=== PATIENT | female | born 1955 | race Caucasian/White ===

== ENCOUNTER 2018-02-28 09:00 | Outpatient (RCR) | payer OTHER, SELFPAY ==
--- NOTE | 2017-10-26 11:38 | PT.OIE ---
Current Diagnoses Incomplete uterovaginal prolapse (10/26/17) Provider Visit Care Team Role Provider Type Hira Mathew MD Family Provider Non-Staff Primary Care Provider Specialty: Family Practice Address: [address] [place], [address] Email: Sunshine Braun MD Attending Provider Physician Specialty: PHOTOFLASH POWDER MIXER Address: [address] [place] [address], [id number] Email: [email or web address] Physical Therapy Initial Evaluation PT-OP-A Visit Information Start: 10/26/17 11:05 Freq: Status: Active Protocol: Document 10/26/17 11:05 [facility] (Rec: 10/26/17 11:19 [facility] [email or web address]) Out-Patient Physical Therapy Visit Information Visit Information Visit Type Initial Evaluation Visit Start Time 10:00 Visit Stop Time 10:45 Total Visit Minutes 45 Visit Number 1 Evaluation Information Evaluation Date 10/26/17 PT-OP-B Current Condition Start: 10/26/17 11:05 Freq: Status: Active Protocol: Document 10/26/17 11:05 [facility] (Rec: 10/26/17 11:19 [facility] [email or web address]) Current Condition History of Current Condition Onset Date jul 25 Current Complaints post op strengthening for repair of uterovaginal prolapse History of Current Condition 62 year old female referred for pelvic floor strengthening s/p uterovaginal prolapse on jul 25 2017. She has been walking only at this point and seeks guidance as to a exercise program she can begin working on for her pelvic floor and hips. She does have a history of a JENNIFER on the right hip 4 years ago with resulting infection and second surgery to clean out the infection. She has been getting PT for scar tissue release and hip strengthening but has put that on hold until she is clear to resume exercise. Mee was experiencing stress incontinence along with the pelvic organ prolapses however she has not expereinced any leaking s/p surgery Treatment Goals Patient/Caregiver Goals Treatment goals include obtaining a home exercise program she can do independently as well as guidance as to returning to pilates exercises she enjoys doing. Mee reports she also needs to be able to lift heavier items at times for work. Prior Functional Status Baseline Function- ADL's Independent Baseline Function- Mobility Independent Current Functional Impairments (Reported) Functional Limitations- ADL's limited in activities that require lifting Functional Limitations- Recreation/ walking only for exercise at [employer] this time PT-OP-I Pelvic Floor Start: 10/26/17 11:19 Freq: Status: Active Protocol: Document 10/26/17 11:19 [facility] (Rec: 10/26/17 11:36 [facility] [email or web address]) Pelvic Floor Assessment Urine Pelvic Floor Surgery Yes Pelvic Clock Pelvic Clock 12-3 Atrophy Pelvic Clock 3-6 Atrophy Pelvic Clock 6-9 Atrophy Pelvic Clock 9-12 Atrophy Pelvic Clock Other Mee is able to activate all regions of the levator ani however the contraction is limited in strength and endurance SEMG (uV) Baseline 1.5 10 Second Contraction 6.4 Recruitment Pattern Fair Relaxation Fair Holding Fair Stability of Hold Fair SEMG Stability of Rest Good Contraction Ability Voluntary Contraction Weak Manual Muscle Testing Left 2 Manual Muscle Testing Right 2 Manual Muscle Testing Anterior 2 Manual Muscle Testing Posterior 3 Muscle Endurance (Seconds) 5 PT-OP-M Strength Start: 10/26/17 11:19 Freq: Status: Active Protocol: Document 10/26/17 11:19 [facility] (Rec: 10/26/17 11:36 [facility] [email or web address]) Trunk Strength Trunk Manual Muscle Testing Core Stabilization able to facilitate Transverse abdominal musculature in supine PT-OP-Q Treatments Start: 10/26/17 11:19 Freq: Status: Active Protocol: Document 10/26/17 11:19 [facility] (Rec: 10/26/17 11:36 [facility] [email or web address]) Therapeutic Exercises Supine Exercises 2 Supine Exercise Name ball rolls in and hip roll outs Side bilateral Reps/Minutes 3 sets of 10 reps each 1 Supine Exercise Name pelvic floor long holds with EMG biofeedback Side bilateral Reps/Minutes hold 10 sec rest 10 sec Comments gave HEP of 5 second hold time 8-10 second rest time, done with home NMES PT-OP-T Assessment and Plan Start: 10/26/17 11:19 Freq: Status: Active Protocol: Document 10/26/17 11:19 [facility] (Rec: 10/26/17 11:36 [facility] [email or web address]) Physical Therapy Assessment Rehab Potential Rehabilitation Potential Excellent Evaluation Complexity Number of Personal Factors/Comorbidities 1-2 Number of Body Systems Impaired 1-2 Clinical Presentation at Evaluation Stable Impairments Impairments Activity Tolerance Functional Activities Strength Tone Goals Three Impairment Mee lacks a home exercise program for pelvic floor and hip strengthening Longterm Goal (LTG) Mee feels independent with a home program of pelvic floor strengthening and hip strengthening and she is able to resume lower abdominal stabilization exercises with correct facilitation of the pelvic floor to avoid any downward pressure. LTG Duration 8 weeks Two Impairment decreased endurance of the pelvic floor Short Term Goal (STG) Improve endurance of the pelvic floor to 10 second hold time in supine and 5 second hold time in standing for improved facilitation of slow twitch muscle fibers STG Duration 6 weeks One Impairment decreased strength of the pelvic floor musculature Community Engagement Coordinator Goal (LTG) Mee demonstrates improved strength of the levator ani with MMT of 4/5 for the pelvic clock or better to assist is supporting the pelvic organs s /p surgery. LTG Duration 8 weeks Assessment Summary Assessment Mee presents to physical therapy 13 weeks s/p her prolapse repair. She has been walking only at this point and seeks guidance on pelvic floor strengthening as well as guidance as to when she can return to her PT for her hip. She has purchased a home kegel toner NMES unit and has tried this out a few times. With examination today Mee is able to facilitate all parts of her levator ani. She is atrophied and is weak but has good sensation and awareness of her pelvic floor. She is limited in endurance. She was started today with Biofeedback and was given a home program working towards of goal of 10 second hold time . We will then progress her exercises to include her hip and safe abdominal exercise avoiding downward pressure and increased intra-abdominal pressure. Treatments will be every other week as Mee lives on [place] and 1xm a week is difficult for her to make Physical Therapy Plan Frequency and Duration Frequency of Treatment Every Other Week Duration of Treatment 8 weeks Plan of Care Start Date 10/26/17 Plan of Care End Date 12/21/17 Therapeutic Interventions Therapeutic Interventions Home Exercise Program Neuromuscular Re-education Patient/Caregiver Education Self-Care/Home Management Therapeutic Exercises Modalities Biofeedback Next Visit Focus/Plan Next Visit Plan begin increasing pelvic floor endurance and add in hip stabilization as the patient is able Please Sign and Return: I have reviewed this Plan of Care and certify that the skilled therapy services above are required to meet the patient???s needs. Physician Signature Date Printed Name and Credentials Clinical Instructor Signature Printed Name and Credentials
--- NOTE | 2017-11-10 09:56 | PT.OTN ---
Current Diagnoses Incomplete uterovaginal prolapse (11/10/17) Physical Therapy Treatment Note PT-OP-A Visit Information Start: 10/26/17 11:05 Freq: Status: Active Protocol: Document 11/10/17 09:52 [facility] (Rec: 11/10/17 09:56 [facility] [email or web address]) Out-Patient Physical Therapy Visit Information Visit Information Visit Type Treatment Note Visit Start Time 09:00 Visit Stop Time 09:45 Total Visit Minutes 45 Visit Number 2 Number of ORACLE APEX DEVELOPER Visits 0 PT-OP-B Current Condition Start: 10/26/17 11:05 Freq: Status: Active Protocol: Document 10/26/17 11:05 [facility] (Rec: 10/26/17 11:19 [facility] [email or web address]) Current Condition History of Current Condition Onset Date jul 25 Current Complaints post op strengthening for repair of uterovaginal prolapse History of Current Condition 62 year old female referred for pelvic floor strengthening s/p uterovaginal prolapse on jul 25 2017. She has been walking only at this point and seeks guidance as to a exercise program she can begin working on for her pelvic floor and hips. She does have a history of a JENNIFER on the right hip 4 years ago with resulting infection and second surgery to clean out the infection. She has been getting PT for scar tissue release and hip strengthening but has put that on hold until she is clear to resume exercise. Mee was experiencing stress incontinence along with the pelvic organ prolapses however she has not expereinced any leaking s/p surgery Treatment Goals Patient/Caregiver Goals Treatment goals include obtaining a home exercise program she can do independently as well as guidance as to returning to pilates exercises she enjoys doing. Mee reports she also needs to be able to lift heavier items at times for work. Prior Functional Status Baseline Function- ADL's Independent Baseline Function- Mobility Independent Current Functional Impairments (Reported) Functional Limitations- ADL's limited in activities that require lifting Functional Limitations- Recreation/ walking only for exercise at [employer] this time PT-OP-C Subjective Start: 10/26/17 11:05 Freq: Status: Active Protocol: Document 11/10/17 09:52 [facility] (Rec: 11/10/17 09:56 [facility] [email or web address]) OP-PT Subjective Patient Comments Patient Comments Mee reports she has been working on her home exercise program. She had one day where she felt pressure with prunning a pitt in her yard PT-OP-I Pelvic Floor Start: 10/26/17 11:19 Freq: Status: Active Protocol: Document 10/26/17 11:19 [facility] (Rec: 10/26/17 11:36 [facility] [email or web address]) Pelvic Floor Assessment Urine Pelvic Floor Surgery Yes Pelvic Clock Pelvic Clock 12-3 Atrophy Pelvic Clock 3-6 Atrophy Pelvic Clock 6-9 Atrophy Pelvic Clock 9-12 Atrophy Pelvic Clock Other Mee is able to activate all regions of the levator ani however the contraction is limited in strength and endurance SEMG (uV) Baseline 1.5 10 Second Contraction 6.4 Recruitment Pattern Fair Relaxation Fair Holding Fair Stability of Hold Fair SEMG Stability of Rest Good Contraction Ability Voluntary Contraction Weak Manual Muscle Testing Left 2 Manual Muscle Testing Right 2 Manual Muscle Testing Anterior 2 Manual Muscle Testing Posterior 3 Muscle Endurance (Seconds) 5 PT-OP-M Strength Start: 10/26/17 11:19 Freq: Status: Active Protocol: Document 10/26/17 11:19 [facility] (Rec: 10/26/17 11:36 [facility] [email or web address]) Trunk Strength Trunk Manual Muscle Testing Core Stabilization able to facilitate Transverse abdominal musculature in supine PT-OP-Q Treatments Start: 10/26/17 11:19 Freq: Status: Active Protocol: Document 11/10/17 09:52 [facility] (Rec: 11/10/17 09:56 [facility] [email or web address]) Therapeutic Exercises Supine Exercises 5 Supine Exercise Name TA facilitation and work on pelvic stabilization with marches Reps/Minutes 20 reps 4 Supine Exercise Name templates for eccentric control and coordination Reps/Minutes 8 minutes 3 Supine Exercise Name quick pelvic floor contractions Reps/Minutes 2 seconds on 2 seconds off 2 Supine Exercise Name ball rolls in and hip roll outs Side bilateral Reps/Minutes 3 sets of 10 reps each 1 Supine Exercise Name pelvic floor long holds with EMG biofeedback Side bilateral Reps/Minutes hold 10 sec rest 10 sec Comments gave HEP of 5 second hold time 8-10 second rest time, done with home NMES Self-Care/Home Management Treatment Activities Self-Care/Home Management Activities trial of a wedge today for pelvic floor assist PT-OP-T Assessment and Plan Start: 10/26/17 11:19 Freq: Status: Active Protocol: Document 11/10/17 09:52 [facility] (Rec: 11/10/17 09:56 [facility] [email or web address]) Physical Therapy Assessment Assessment Summary Assessment good increase in strength today on EMG biofeedback for 6 .4 to 8.9 uv average. Her max went from 12.0 to 18.9 uv Physical Therapy Plan Frequency and Duration Frequency of Treatment Every Other Week Duration of Treatment 8 weeks Plan of Care Start Date 10/26/17 Plan of Care End Date 12/21/17 Therapeutic Interventions Therapeutic Interventions Home Exercise Program Neuromuscular Re-education Patient/Caregiver Education Self-Care/Home Management Therapeutic Exercises Modalities Biofeedback Next Visit Focus/Plan Next Visit Plan continue to progress abdominal stabilization and hip stabilization Please Sign and Return: I have reviewed this Plan of Care and certify that the skilled therapy services above are required to meet the patient?s needs. Physician Signature Date Printed Name and Credentials Clinical Instructor Signature Printed Name and Credentials
--- NOTE | 2017-11-29 11:42 | PT.OTN ---
Current Diagnoses Incomplete uterovaginal prolapse (11/29/17) Physical Therapy Treatment Note PT-OP-A Visit Information Start: 10/26/17 11:05 Freq: Status: Active Protocol: Document 11/29/17 09:45 [facility] (Rec: 11/29/17 11:42 [facility] [email or web address]) Out-Patient Physical Therapy Visit Information Visit Information Visit Type Treatment Note Visit Start Time 09:45 Visit Stop Time 10:30 Total Visit Minutes 45 Visit Number 3 Number of FRONT END TECHNICIAN Visits 0 PT-OP-B Current Condition Start: 10/26/17 11:05 Freq: Status: Active Protocol: Document 10/26/17 11:05 [facility] (Rec: 10/26/17 11:19 [facility] [email or web address]) Current Condition History of Current Condition Onset Date jul 25 Current Complaints post op strengthening for repair of uterovaginal prolapse History of Current Condition 62 year old female referred for pelvic floor strengthening s/p uterovaginal prolapse on jul 25 2017. She has been walking only at this point and seeks guidance as to a exercise program she can begin working on for her pelvic floor and hips. She does have a history of a JENNIFER on the right hip 4 years ago with resulting infection and second surgery to clean out the infection. She has been getting PT for scar tissue release and hip strengthening but has put that on hold until she is clear to resume exercise. Mee was experiencing stress incontinence along with the pelvic organ prolapses however she has not expereinced any leaking s/p surgery Treatment Goals Patient/Caregiver Goals Treatment goals include obtaining a home exercise program she can do independently as well as guidance as to returning to pilates exercises she enjoys doing. Mee reports she also needs to be able to lift heavier items at times for work. Prior Functional Status Baseline Function- ADL's Independent Baseline Function- Mobility Independent Current Functional Impairments (Reported) Functional Limitations- ADL's limited in activities that require lifting Functional Limitations- Recreation/ walking only for exercise at [employer] this time PT-OP-C Subjective Start: 10/26/17 11:05 Freq: Status: Active Protocol: Document 11/29/17 09:45 [facility] (Rec: 11/29/17 11:42 [facility] [email or web address]) OP-PT Subjective Patient Comments Patient Comments Mee states she has been using her Electrical stimulation unit daily but this last week felt like her muscles became fatigued and she was leaking a bit as well as feeling pressure in her pelvic floor. She decided to hold off on the unit until today's appointment and symptoms did improve again PT-OP-I Pelvic Floor Start: 10/26/17 11:19 Freq: Status: Active Protocol: Document 10/26/17 11:19 [facility] (Rec: 10/26/17 11:36 [facility] [email or web address]) Pelvic Floor Assessment Urine Pelvic Floor Surgery Yes Pelvic Clock Pelvic Clock 12-3 Atrophy Pelvic Clock 3-6 Atrophy Pelvic Clock 6-9 Atrophy Pelvic Clock 9-12 Atrophy Pelvic Clock Other Mee is able to activate all regions of the levator ani however the contraction is limited in strength and endurance SEMG (uV) Baseline 1.5 10 Second Contraction 6.4 Recruitment Pattern Fair Relaxation Fair Holding Fair Stability of Hold Fair SEMG Stability of Rest Good Contraction Ability Voluntary Contraction Weak Manual Muscle Testing Left 2 Manual Muscle Testing Right 2 Manual Muscle Testing Anterior 2 Manual Muscle Testing Posterior 3 Muscle Endurance (Seconds) 5 PT-OP-M Strength Start: 10/26/17 11:19 Freq: Status: Active Protocol: Document 10/26/17 11:19 [facility] (Rec: 10/26/17 11:36 [facility] [email or web address]) Trunk Strength Trunk Manual Muscle Testing Core Stabilization able to facilitate Transverse abdominal musculature in supine PT-OP-Q Treatments Start: 10/26/17 11:19 Freq: Status: Active Protocol: Document 11/29/17 09:45 [facility] (Rec: 11/29/17 11:42 [facility] [email or web address]) Therapeutic Exercises Supine Exercises 5 Supine Exercise Name TA facilitation and work on pelvic stabilization with marches Reps/Minutes 20 reps 4 Supine Exercise Name templates for eccentric control and coordination Reps/Minutes 8 minutes 3 Supine Exercise Name quick pelvic floor contractions Reps/Minutes 2 seconds on 2 seconds off 2 Supine Exercise Name ball rolls in and hip roll outs Side bilateral Reps/Minutes 3 sets of 10 reps each 1 Supine Exercise Name pelvic floor long holds with EMG biofeedback Side bilateral Reps/Minutes hold 10 sec rest 10 sec Comments gave HEP of 10 second hold time 10-20 second rest time, done with home NMES PT-OP-T Assessment and Plan Start: 10/26/17 11:19 Freq: Status: Active Protocol: Document 11/29/17 09:45 [facility] (Rec: 11/29/17 11:42 [facility] [email or web address]) Physical Therapy Assessment Assessment Summary Assessment good increase again today on EMG biofeedback to 10.1 uv average and 23.3 uv max. She was able to rest to baseline following contractions and seemed to do better after a few reps. We discussed tx plan for home of holding off on estim to a few times per week as her pelvic floor was most likely becomming overtired. Physical Therapy Plan Frequency and Duration Frequency of Treatment Every Other Week Duration of Treatment 8 weeks Plan of Care Start Date 10/26/17 Plan of Care End Date 12/21/17 Therapeutic Interventions Therapeutic Interventions Home Exercise Program Neuromuscular Re-education Patient/Caregiver Education Self-Care/Home Management Therapeutic Exercises Modalities Biofeedback Next Visit Focus/Plan Next Visit Plan progress towards standing pelvic floor exercises as Mee can tolerates
--- NOTE | 2017-12-20 12:26 | PT.OTN ---
Current Diagnoses Incomplete uterovaginal prolapse (12/20/17) Physical Therapy Treatment Note PT-OP-A Visit Information Start: 10/26/17 11:05 Freq: Status: Active Protocol: Document 12/20/17 09:45 [facility] (Rec: 12/20/17 12:26 [facility] [email or web address]) Out-Patient Physical Therapy Visit Information Visit Information Visit Type Re-Evaluation Visit Start Time 09:45 Visit Stop Time 10:30 Total Visit Minutes 45 Visit Number 3 Number of PRIVATE INVESTIGATOR Visits 0 PT-OP-B Current Condition Start: 10/26/17 11:05 Freq: Status: Active Protocol: Document 10/26/17 11:05 [facility] (Rec: 10/26/17 11:19 [facility] [email or web address]) Current Condition History of Current Condition Onset Date jul 25 Current Complaints post op strengthening for repair of uterovaginal prolapse History of Current Condition 62 year old female referred for pelvic floor strengthening s/p uterovaginal prolapse on jul 25 2017. She has been walking only at this point and seeks guidance as to a exercise program she can begin working on for her pelvic floor and hips. She does have a history of a JENNIFER on the right hip 4 years ago with resulting infection and second surgery to clean out the infection. She has been getting PT for scar tissue release and hip strengthening but has put that on hold until she is clear to resume exercise. Mee was experiencing stress incontinence along with the pelvic organ prolapses however she has not expereinced any leaking s/p surgery Treatment Goals Patient/Caregiver Goals Treatment goals include obtaining a home exercise program she can do independently as well as guidance as to returning to pilates exercises she enjoys doing. Mee reports she also needs to be able to lift heavier items at times for work. Prior Functional Status Baseline Function- ADL's Independent Baseline Function- Mobility Independent Current Functional Impairments (Reported) Functional Limitations- ADL's limited in activities that require lifting Functional Limitations- Recreation/ walking only for exercise at [employer] this time PT-OP-C Subjective Start: 10/26/17 11:05 Freq: Status: Active Protocol: Document 12/20/17 09:45 [facility] (Rec: 12/20/17 12:26 [facility] [email or web address]) OP-PT Subjective Patient Comments Patient Comments Overall Mee reports decreased complaints of pelvic pressure and heaviness. She was sore for 4-5 days following her last PT appointment for [place] after the addition of clam shells. This tightness has calmed down now . PT-OP-I Pelvic Floor Start: 10/26/17 11:19 Freq: Status: Active Protocol: Document 12/20/17 09:45 [facility] (Rec: 12/20/17 12:26 [facility] [email or web address]) Pelvic Floor Assessment SEMG (uV) Baseline 2 10 Second Contraction 14.4 Recruitment Pattern Good Relaxation Good Holding Good Stability of Hold Good SEMG Stability of Rest Good Contraction Ability Voluntary Contraction Moderate Manual Muscle Testing Left 3 Manual Muscle Testing Right 3 Manual Muscle Testing Anterior 3 Manual Muscle Testing Posterior 3 Muscle Endurance (Seconds) 10 PT-OP-M Strength Start: 10/26/17 11:19 Freq: Status: Active Protocol: Document 10/26/17 11:19 [facility] (Rec: 10/26/17 11:36 [facility] [email or web address]) Trunk Strength Trunk Manual Muscle Testing Core Stabilization able to facilitate Transverse abdominal musculature in supine PT-OP-Q Treatments Start: 10/26/17 11:19 Freq: Status: Active Protocol: Document 12/20/17 09:45 [facility] (Rec: 12/20/17 12:26 [facility] [email or web address]) Therapeutic Exercises Supine Exercises 5 Supine Exercise Name TA facilitation and work on pelvic stabilization with marches Reps/Minutes 20 reps 4 Supine Exercise Name templates for eccentric control and coordination Reps/Minutes 5 minutes 3 Supine Exercise Name quick pelvic floor contractions Reps/Minutes 2 seconds on 2 seconds off Other Exercises 2 Other Exercise Name cat/cow Reps/Minutes 10 reps 1 Other Exercise Name quadraped rock backs Equipment Used pillow between buttocks and heels Comments keeping out of full hip flexion due to hip replacement on the right. PT-OP-T Assessment and Plan Start: 10/26/17 11:19 Freq: Status: Active Protocol: Document 12/20/17 09:45 [facility] (Rec: 12/20/17 12:26 [facility] [email or web address]) Physical Therapy Assessment Progress Towards Goals Progress Towards Goals Progressing Toward Goals Assessment Summary Assessment Mee is making steady progress towards her goals. Her pelvic floor strength is improving as well as her endurance ability to sustain a pelvic floor contraction. Mee has been seen once every 2-3 weeks due to her commute from the [facility]. I would like to continue PT to progress her towards upright dynamic stability exercises Physical Therapy Plan Frequency and Duration Frequency of Treatment Every Other Week Duration of Treatment 8 weeks Plan of Care Start Date 12/20/17 Plan of Care End Date 02/22/18 Therapeutic Interventions Therapeutic Interventions Home Exercise Program Neuromuscular Re-education Patient/Caregiver Education Self-Care/Home Management Therapeutic Exercises Modalities Biofeedback Next Visit Focus/Plan Next Note Type Treatment Note Next Visit Plan progress towards standing pelvic floor exercises as Mee can tolerates
--- NOTE | 2017-12-20 12:26 | PT.OPPOC ---
Current Diagnoses Incomplete uterovaginal prolapse (12/20/17) Provider Visit Care Team Role Provider Type Hira Mathew MD Family Provider Non-Staff Primary Care Provider Specialty: Family Practice Address: [address] [place], [address] Email: Sunshine Braun MD Attending Provider Physician Specialty: MASTER COOK Address: [address] [place] [address], [id number] Email: [email or web address] Plan Of Care PT-OP-T Assessment and Plan Start: 10/26/17 11:19 Freq: Status: Active Protocol: Document 12/20/17 09:45 [facility] (Rec: 12/20/17 12:26 [facility] [email or web address]) Physical Therapy Assessment Progress Towards Goals Progress Towards Goals Progressing Toward Goals Assessment Summary Assessment Mee is making steady progress towards her goals. Her pelvic floor strength is improving as well as her endurance ability to sustain a pelvic floor contraction. Mee has been seen once every 2-3 weeks due to her commute from the [facility]. I would like to continue PT to progress her towards upright dynamic stability exercises Physical Therapy Plan Frequency and Duration Frequency of Treatment Every Other Week Duration of Treatment 8 weeks Plan of Care Start Date 12/20/17 Plan of Care End Date 02/22/18 Therapeutic Interventions Therapeutic Interventions Home Exercise Program Neuromuscular Re-education Patient/Caregiver Education Self-Care/Home Management Therapeutic Exercises Modalities Biofeedback Next Visit Focus/Plan Next Note Type Treatment Note Next Visit Plan progress towards standing pelvic floor exercises as Mee can tolerates Plan of Care Dates Plan of Care Start Date 12/20/17 Plan of Care End Date 02/22/18 Please Sign and Return: I have reviewed this Plan of Care and certify that the skilled therapy services above are required to meet the patient?s needs. Physician Signature Date Printed Name and Credentials Clinical Instructor Signature Printed Name and Credentials
--- NOTE | 2017-12-20 12:30 | PT.OTRE ---
Current Diagnoses Incomplete uterovaginal prolapse (12/20/17) Provider Visit Care Team Role Provider Type Hira Mathew MD Family Provider Non-Staff Primary Care Provider Specialty: Family Practice Address: [address] [place], [address] Email: Sunshine Braun MD Attending Provider Physician Specialty: GEODESIST Address: [address] [place] [address], [id number] Email: [email or web address] Physical Therapy Re-Evaluation PT-OP-A Visit Information Start: 10/26/17 11:05 Freq: Status: Active Protocol: Document 12/20/17 09:45 [facility] (Rec: 12/20/17 12:26 [facility] [email or web address]) Out-Patient Physical Therapy Visit Information Visit Information Visit Type Re-Evaluation Visit Start Time 09:45 Visit Stop Time 10:30 Total Visit Minutes 45 Visit Number 3 Number of SUPERVISOR SHEET MANUFACTURING Visits 0 PT-OP-B Current Condition Start: 10/26/17 11:05 Freq: Status: Active Protocol: Document 10/26/17 11:05 [facility] (Rec: 10/26/17 11:19 [facility] [email or web address]) Current Condition History of Current Condition Onset Date jul 25 Current Complaints post op strengthening for repair of uterovaginal prolapse History of Current Condition 62 year old female referred for pelvic floor strengthening s/p uterovaginal prolapse on jul 25 2017. She has been walking only at this point and seeks guidance as to a exercise program she can begin working on for her pelvic floor and hips. She does have a history of a JENNIFER on the right hip 4 years ago with resulting infection and second surgery to clean out the infection. She has been getting PT for scar tissue release and hip strengthening but has put that on hold until she is clear to resume exercise. Mee was experiencing stress incontinence along with the pelvic organ prolapses however she has not expereinced any leaking s/p surgery Treatment Goals Patient/Caregiver Goals Treatment goals include obtaining a home exercise program she can do independently as well as guidance as to returning to pilates exercises she enjoys doing. Mee reports she also needs to be able to lift heavier items at times for work. Prior Functional Status Baseline Function- ADL's Independent Baseline Function- Mobility Independent Current Functional Impairments (Reported) Functional Limitations- ADL's limited in activities that require lifting Functional Limitations- Recreation/ walking only for exercise at [employer] this time PT-OP-C Subjective Start: 10/26/17 11:05 Freq: Status: Active Protocol: Document 12/20/17 09:45 [facility] (Rec: 12/20/17 12:26 [facility] [email or web address]) OP-PT Subjective Patient Comments Patient Comments Overall Mee reports decreased complaints of pelvic pressure and heaviness. She was sore for 4-5 days following her last PT appointment for [place] after the addition of clam shells. This tightness has calmed down now . PT-OP-I Pelvic Floor Start: 10/26/17 11:19 Freq: Status: Active Protocol: Document 12/20/17 09:45 [facility] (Rec: 12/20/17 12:26 [facility] [email or web address]) Pelvic Floor Assessment SEMG (uV) Baseline 2 10 Second Contraction 14.4 Recruitment Pattern Good Relaxation Good Holding Good Stability of Hold Good SEMG Stability of Rest Good Contraction Ability Voluntary Contraction Moderate Manual Muscle Testing Left 3 Manual Muscle Testing Right 3 Manual Muscle Testing Anterior 3 Manual Muscle Testing Posterior 3 Muscle Endurance (Seconds) 10 PT-OP-M Strength Start: 10/26/17 11:19 Freq: Status: Active Protocol: Document 10/26/17 11:19 [facility] (Rec: 10/26/17 11:36 [facility] [email or web address]) Trunk Strength Trunk Manual Muscle Testing Core Stabilization able to facilitate Transverse abdominal musculature in supine PT-OP-Q Treatments Start: 10/26/17 11:19 Freq: Status: Active Protocol: Document 12/20/17 09:45 [facility] (Rec: 12/20/17 12:26 [facility] [email or web address]) Therapeutic Exercises Supine Exercises 5 Supine Exercise Name TA facilitation and work on pelvic stabilization with marches Reps/Minutes 20 reps 4 Supine Exercise Name templates for eccentric control and coordination Reps/Minutes 5 minutes 3 Supine Exercise Name quick pelvic floor contractions Reps/Minutes 2 seconds on 2 seconds off Other Exercises 2 Other Exercise Name cat/cow Reps/Minutes 10 reps 1 Other Exercise Name quadraped rock backs Equipment Used pillow between buttocks and heels Comments keeping out of full hip flexion due to hip replacement on the right. PT-OP-T Assessment and Plan Start: 10/26/17 11:19 Freq: Status: Active Protocol: Document 12/20/17 09:45 [facility] (Rec: 12/20/17 12:26 [facility] [email or web address]) Physical Therapy Assessment Progress Towards Goals Progress Towards Goals Progressing Toward Goals Assessment Summary Assessment Mee is making steady progress towards her goals. Her pelvic floor strength is improving as well as her endurance ability to sustain a pelvic floor contraction. Mee has been seen once every 2-3 weeks due to her commute from the [facility]. I would like to continue PT to progress her towards upright dynamic stability exercises Physical Therapy Plan Frequency and Duration Frequency of Treatment Every Other Week Duration of Treatment 8 weeks Plan of Care Start Date 12/20/17 Plan of Care End Date 02/22/18 Therapeutic Interventions Therapeutic Interventions Home Exercise Program Neuromuscular Re-education Patient/Caregiver Education Self-Care/Home Management Therapeutic Exercises Modalities Biofeedback Next Visit Focus/Plan Next Note Type Treatment Note Next Visit Plan progress towards standing pelvic floor exercises as Mee can tolerates
--- NOTE | 2018-01-10 18:04 | PT.OTN ---
Current Diagnoses Incomplete uterovaginal prolapse (01/10/18) Physical Therapy Treatment Note PT-OP-A Visit Information Start: 10/26/17 11:05 Freq: Status: Active Protocol: Document 01/10/18 18:00 [facility] (Rec: 01/10/18 18:04 [facility] [email or web address]) Out-Patient Physical Therapy Visit Information Visit Information Visit Type Treatment Note Visit Start Time 09:45 Visit Stop Time 10:30 Total Visit Minutes 45 Visit Number 5 Number of WATER POLLUTION CONTROL TECHNICIAN Visits 0 PT-OP-B Current Condition Start: 10/26/17 11:05 Freq: Status: Active Protocol: Document 10/26/17 11:05 [facility] (Rec: 10/26/17 11:19 [facility] [email or web address]) Current Condition History of Current Condition Onset Date jul 25 Current Complaints post op strengthening for repair of uterovaginal prolapse History of Current Condition 62 year old female referred for pelvic floor strengthening s/p uterovaginal prolapse on jul 25 2017. She has been walking only at this point and seeks guidance as to a exercise program she can begin working on for her pelvic floor and hips. She does have a history of a JENNIFER on the right hip 4 years ago with resulting infection and second surgery to clean out the infection. She has been getting PT for scar tissue release and hip strengthening but has put that on hold until she is clear to resume exercise. Mee was experiencing stress incontinence along with the pelvic organ prolapses however she has not expereinced any leaking s/p surgery Treatment Goals Patient/Caregiver Goals Treatment goals include obtaining a home exercise program she can do independently as well as guidance as to returning to pilates exercises she enjoys doing. Mee reports she also needs to be able to lift heavier items at times for work. Prior Functional Status Baseline Function- ADL's Independent Baseline Function- Mobility Independent Current Functional Impairments (Reported) Functional Limitations- ADL's limited in activities that require lifting Functional Limitations- Recreation/ walking only for exercise at [employer] this time PT-OP-C Subjective Start: 10/26/17 11:05 Freq: Status: Active Protocol: Document 01/10/18 18:00 [facility] (Rec: 01/10/18 18:04 [facility] [email or web address]) OP-PT Subjective Patient Comments Patient Comments doing better overall, no c/o leaking or pelvic heavyness. Found a setting on her home NMES until that helps relax the pelvic floor following exrcises and this seems to help PT-OP-I Pelvic Floor Start: 10/26/17 11:19 Freq: Status: Active Protocol: Document 12/20/17 09:45 [facility] (Rec: 12/20/17 12:26 [facility] [email or web address]) Pelvic Floor Assessment SEMG (uV) Baseline 2 10 Second Contraction 14.4 Recruitment Pattern Good Relaxation Good Holding Good Stability of Hold Good SEMG Stability of Rest Good Contraction Ability Voluntary Contraction Moderate Manual Muscle Testing Left 3 Manual Muscle Testing Right 3 Manual Muscle Testing Anterior 3 Manual Muscle Testing Posterior 3 Muscle Endurance (Seconds) 10 PT-OP-M Strength Start: 10/26/17 11:19 Freq: Status: Active Protocol: Document 10/26/17 11:19 [facility] (Rec: 10/26/17 11:36 [facility] [email or web address]) Trunk Strength Trunk Manual Muscle Testing Core Stabilization able to facilitate Transverse abdominal musculature in supine PT-OP-Q Treatments Start: 10/26/17 11:19 Freq: Status: Active Protocol: Document 01/10/18 18:00 [facility] (Rec: 01/10/18 18:04 [facility] [email or web address]) Therapeutic Exercises Supine Exercises 4 Supine Exercise Name templates for eccentric control and coordination Reps/Minutes 5 minutes 3 Supine Exercise Name quick pelvic floor contractions Reps/Minutes 2 seconds on 2 seconds off 1 Supine Exercise Name pelvic floor long holds with EMG biofeedback Side bilateral Reps/Minutes hold 10 sec rest 10 sec Comments gave HEP of 10 second hold time 10-20 second rest time, done with home NMES Standing Exercises 1 Standing Exercise Name standing pelvic floor facilitation Other Exercises 4 Other Exercise Name sit-stand with pelvic floor activation on the way up to stand 3 Other Exercise Name seated ball pelvic tilts, pelvic clocks and pelvic floor facilitation PT-OP-T Assessment and Plan Start: 10/26/17 11:19 Freq: Status: Active Protocol: Document 01/10/18 18:00 [facility] (Rec: 01/10/18 18:04 [facility] [email or web address]) Physical Therapy Assessment Assessment Summary Assessment good progress and tolerated standing exercises well today Physical Therapy Plan Frequency and Duration Frequency of Treatment Every Other Week Duration of Treatment 8 weeks Plan of Care Start Date 12/20/17 Plan of Care End Date 02/22/18 Therapeutic Interventions Therapeutic Interventions Home Exercise Program Neuromuscular Re-education Patient/Caregiver Education Self-Care/Home Management Therapeutic Exercises Modalities Biofeedback Next Visit Focus/Plan Next Note Type Treatment Note Next Visit Plan continue to progress towards standing pelvic floor exercises as Mee can tolerate
--- NOTE | 2018-02-28 14:26 | PT.OTN ---
Current Diagnoses Incomplete uterovaginal prolapse (02/28/18) Physical Therapy Treatment Note PT-OP-A Visit Information Start: 10/26/17 11:05 Freq: Status: Active Protocol: Document 01/10/18 18:00 [facility] (Rec: 01/10/18 18:04 [facility] [email or web address]) Out-Patient Physical Therapy Visit Information Visit Information Visit Type Treatment Note Visit Start Time 09:45 Visit Stop Time 10:30 Total Visit Minutes 45 Visit Number 5 Number of BEVELING MACHINE OPERATOR Visits 0 PT-OP-B Current Condition Start: 10/26/17 11:05 Freq: Status: Active Protocol: Document 10/26/17 11:05 [facility] (Rec: 10/26/17 11:19 [facility] [email or web address]) Current Condition History of Current Condition Onset Date jul 25 Current Complaints post op strengthening for repair of uterovaginal prolapse History of Current Condition 62 year old female referred for pelvic floor strengthening s/p uterovaginal prolapse on jul 25 2017. She has been walking only at this point and seeks guidance as to a exercise program she can begin working on for her pelvic floor and hips. She does have a history of a JENNIFER on the right hip 4 years ago with resulting infection and second surgery to clean out the infection. She has been getting PT for scar tissue release and hip strengthening but has put that on hold until she is clear to resume exercise. Mee was experiencing stress incontinence along with the pelvic organ prolapses however she has not expereinced any leaking s/p surgery Treatment Goals Patient/Caregiver Goals Treatment goals include obtaining a home exercise program she can do independently as well as guidance as to returning to pilates exercises she enjoys doing. Mee reports she also needs to be able to lift heavier items at times for work. Prior Functional Status Baseline Function- ADL's Independent Baseline Function- Mobility Independent Current Functional Impairments (Reported) Functional Limitations- ADL's limited in activities that require lifting Functional Limitations- Recreation/ walking only for exercise at [employer] this time PT-OP-C Subjective Start: 10/26/17 11:05 Freq: Status: Active Protocol: Document 02/28/18 14:19 [facility] (Rec: 02/28/18 14:26 [facility] [email or web address]) OP-PT Subjective Patient Comments Patient Comments Mee reports she is not experiencing any urinary incontinence and overall pelvic pressure is reduced. She can still feel a stress onto her pelvic floor with certain activities but this does not cause her to leak, it is more of a awarenss that there is a pressure onto her pelvic floor. Patient Reported Progress Improving PT-OP-I Pelvic Floor Start: 10/26/17 11:19 Freq: Status: Active Protocol: Document 02/28/18 14:19 [facility] (Rec: 02/28/18 14:26 [facility] [email or web address]) Pelvic Floor Assessment SEMG (uV) Baseline 2 10 Second Contraction 16.0 Contraction Ability Voluntary Contraction Moderate Manual Muscle Testing Left 4 Manual Muscle Testing Right 4 Manual Muscle Testing Anterior 3 Manual Muscle Testing Posterior 4 Muscle Endurance (Seconds) 10 PT-OP-M Strength Start: 10/26/17 11:19 Freq: Status: Active Protocol: Document 10/26/17 11:19 [facility] (Rec: 10/26/17 11:36 [facility] [email or web address]) Trunk Strength Trunk Manual Muscle Testing Core Stabilization able to facilitate Transverse abdominal musculature in supine PT-OP-Q Treatments Start: 10/26/17 11:19 Freq: Status: Active Protocol: Document 01/10/18 18:00 [facility] (Rec: 01/10/18 18:04 [facility] [email or web address]) Therapeutic Exercises Supine Exercises 4 Supine Exercise Name templates for eccentric control and coordination Reps/Minutes 5 minutes 3 Supine Exercise Name quick pelvic floor contractions Reps/Minutes 2 seconds on 2 seconds off 1 Supine Exercise Name pelvic floor long holds with EMG biofeedback Side bilateral Reps/Minutes hold 10 sec rest 10 sec Comments gave HEP of 10 second hold time 10-20 second rest time, done with home NMES Standing Exercises 1 Standing Exercise Name standing pelvic floor facilitation Other Exercises 4 Other Exercise Name sit-stand with pelvic floor activation on the way up to stand 3 Other Exercise Name seated ball pelvic tilts, pelvic clocks and pelvic floor facilitation PT-OP-T Assessment and Plan Start: 10/26/17 11:19 Freq: Status: Active Protocol: Document 02/28/18 14:19 [facility] (Rec: 02/28/18 14:26 [facility] [email or web address]) Physical Therapy Assessment Progress Towards Goals Progress Towards Goals Goals Met Assessment Summary Assessment Mee has made good overall progress in physical therapy and she is ready to discontinue to a Independent home program and return to her pilates class. She has improved her pelvic floor strength overall and has decreased her complaints of pelvic pressure. Physical Therapy Plan Discharge Physical Therapy Discharge Reasons Goals Met Discharge Comments Mee has met her goals and will be discharged to a independent home program
== END 2018-03-13 15:31 ==
LOC: PHYS 09:00
PROVIDERS: Family Provider Family Medicine; PCP Family Medicine; Visit Provider Specialist
DX: N81.2 Incomplete uterovaginal prolapse (principal)
CPT/HCPCS: 97110; 97161; 97164; 97535

== ENCOUNTER 2019-03-19 11:49 | Day surgery (SDC) | payer OTHER, SELFPAY ==
[2019-03-15 15:03] VITALS: BMI 37.5
[2019-03-19] VITALS (12 sets, daily range): BP systolic 98–138; BP diastolic 61–83; PULSE 62–89; RESP 10–16; TEMP 36.2–36.9; O2SAT 94–100; BMI 36.3
[2019-03-19] MEDS: LACTATED RINGERS 1,000 ML 100 ML IV ×2 (12:40→18:25)
--- NOTE | 2019-03-19 12:45 | PM.PREOP ---
Pre-operative Note Interval Note History & Physical reviewed/Exam performed by Physician: Yes Changes to H&P: No H&P completed within 30 days and has changed as indicated here:: see outpt note from today
[2019-03-19] MEDS: SCOPOLAMINE 1 PATCH TOP (14:04)
[2019-03-19] MEDS: CEFAZOLIN 2 GM/100 ML FROZ.PIGGY IV (14:15)
--- NOTE | 2019-03-19 14:35 | SUR.OPER ---
Lithotomy on padded OR bed, head on pillow, arms secured on padded arm boards at <90 degrees abduction. Legs secured in padded yellow fins stirrups.
[2019-03-19] MEDS: BUPIVACAINE 0.5% W/ EPI (PF) VIAL 30 ML INJ (14:40)
[2019-03-19] MEDS: MEPERIDINE 50 MG/ML INJ 25 MG IV ×2 (16:30→16:35)
[2019-03-19] MEDS: fentaNYL 100 MCG/2 ML INJ 50 MCG IV ×2 (16:31→16:38)
--- NOTE | 2019-03-19 16:35 | PM.OP.1 ---
Operative Date/Time/Diagnoses Date of procedure: 03/19/19 Time of procedure: 16:35 Pre-op diagnosis: Cystocele and rectocele with partial uterovaginal prolapse Post-op diagnosis: same Procedure & Clinicians Procedure: Anterior and posterior repair with sacrospinous ligament fixation Same procedure as scheduled: Yes Indications: Symptomatic cystocele Surgeon: Sunshine Braun Click Yes if Unassisted: Yes Anesthesia Type: General Operative Notes Findings: Cystocele prolapsing to the hymen and small rectocele with small amount of uterine descent Closure Type: primary Prosthetic devices, grafts, tissues, transplants, or devices: Treated dermal biological graft from coloplast Applied: catheter and other (Vaginal pack) Estimated Blood Loss (mL): 75 Blood products transfused: none Procedure in detail: Patient was brought to the operating room where she underwent general anesthesia. She was placed in low Yellofin stirrups and prepped and draped in the usual sterile fashion. Warming was in place. 2 g of Ancef were in prior to beginning of the case. Pulsatile stockings were in place and functional. A check system was reviewed with the staff in the room prior to beginning the case. A Hutson catheter was placed. The area of the cystocele and the rectocele was injected with a dilute solution of Marcaine with epinephrine. Incision was made over the cystocele with a scalpel. Dissection was undertaken laterally with sharp and blunt dissection. The cystocele caliber was decreased with a pursestring suture of 2 0 Vicryl. Dissection was taken down to the sacrospinous ligament. 0 nonabsorbable suture using the Capio was placed through the sacrospinous ligaments on both sides. The edges of the graft material were sutured to the sacrospinous ligament using the Capio needle. 0 PDS was used to suture the graft to the arcus tendineus fascia pelvis with 3 sutures on each side. The vaginal incision was repaired with running 2 0 Vicryl suture. An incision was made over the rectocele with a scalpel. Dissection was undertaken laterally. Plication sutures with 2- 0 Vicryl were placed. The incision was closed with 2 0 Vicryl suture. Rectal exam did not reveal any sutures in the rectum. Vaginal packing was placed. Patient went to recovery room in good condition. Complications: none Post-operative Condition: stable Disposition: Acute Care Plan for aftercare: Monitor overnight with removal of Hutson and vaginal packing in a.m. home after bladder trial
[2019-03-19] MEDS: KETOROLAC 30 MG/ML VIAL IV (18:25)
[2019-03-19] MEDS: DOCUSATE 250 MG CAPSULE PO (20:58)
--- NOTE | 2019-03-19 23:20 | PC.NURSE ---
Eves shift: A&OX3, 94%RA. LS:clear. BTX4. denied nausea. mari patent. pt's adore pad had scant amount of drainage.cms+. oriented pt to the room. call light in reach.
[2019-03-20 00:20] VITALS: BP 128/63; PULSE 83; RESP 17; TEMP 36.5; O2SAT 95
[2019-03-20] MEDS: KETOROLAC 30 MG/ML VIAL IV ×3 (00:32→12:46)
--- NOTE | 2019-03-20 01:19 | PC.NURSE ---
Addendum entered by Nancy Rosario R.N. 03/20/19 06:34: States pain in abdominal area is heavy, achy and stinging pain in vaginal area from catheter; medicated with Toradol for 2/10 pain. Original Note: 0039 Patient is alert and oriented. Breath sounds CTA with RA sat of 95%. HRR. Denies nausea. BT hypoactive; denies flatus as yet. Indwelling catheter is patent; urine is clear yellow. Able to move self in bed but has not yet been out of bed. Peripad with small amount sanguinous drainage. Wearing bilateral SCD's. Reports pinching pain from catheter and rates severity as 3/10; medicated with Toradol. Fall risk score is moderate.
[2019-03-20 06:15] VITALS: BP 135/65; PULSE 88; RESP 18; TEMP 36.8; O2SAT 98
[2019-03-20] MEDS: SODIUM CHLORIDE 0.9% FLUSH 10 ML IV ×3 (06:30→12:47)
[2019-03-20 07:00] VITALS: BP 138/70; PULSE 81; RESP 16; TEMP 36.9; O2SAT 97
--- NOTE | 2019-03-20 08:36 | PM.DS.1 ---
History of Present Illness History of Present Illness Date Patient Seen: 03/20/19 Time Patient Seen: 08:36 Chief complaint: *OPB*[id number] Narrative: Patient underwent a anterior and posterior repair with sacrospinous ligament fixation. Discharge Providers Provider Discharge Date: 03/20/19 Primary care physician: Hira Mathew MD Discharge provider: Sunshine Braun MD Summary Hospital Course Discharge Diagnosis: Symptomatic cystocele , rectocele and uterine prolapse Hospital Course: Patient underwent a anterior and posterior repair with sacrospinous ligament fixation on 03/19/2019 her cystocele repair was augmented with biologic graft Status at Discharge Cognitive/behavioral status at discharge: oriented Functional status at discharge: independent ambulation Overall status at discharge: patient is progressing back to baseline Time Spent with Patient Time spent: Less than 30 minutes Exam Vital Signs (past 8 hours): - 03/20/19 06:15 03/20/19 07:00 Temperature 98.2 F 98.4 F Pulse Rate 88 81 Respiratory Rate 18 16 Blood Pressure 135/65 138/70 Pulse Oximetry 98 97 Oxygen Delivery Method Room Air Oxygen Flow Rate 0 Narrative Exam Narrative: Patient's abdomen is soft nontender. Her vaginal packing and Hutson were removed. Extremities without edema and nontender. Discharge Plan Discharge Plan Patient Disposition: Home Discharge comment: Remove the Scopolamine patch within 72 hours. Wash your hands after removal of patch. Discharge Med Rec/Prescriptions Prescriptions: New oxycodone-acetaminophen 5-325 mg tablet 1 tab PO Q4-6H PRN (Reason: pain) Qty: 30 RF: 0 Continued multivitamin Capsule 1 cap PO DAILY Qty: 0 RF: 0 levothyroxine 150 mcg tablet 150 mcg PO DAILY RF: 0 acetaminophen [Tylenol Extra Strength] 500 mg Tablet 1,000 mg PO BID RF: 0 Follow up/Referrals: Sunshine Braun MD [Physician] - (Patient will call to schedule postop appointment to coincide with her other schedule [place]2 weeks) Discharge Orders: Discharge (Order); Ordered 03/20/19 Ordered By: Sunshine Braun Provider Discharge Instructions Diet: Regular Activity: Nothing in vagina or lift over 20 lb for 6 weeks Skin/Wound/Dressing Care Report to your healthcare provider any signs of infection, such as:: chills, fever and increased pain Discharge Data Primary Care Provider: Hira Mathew Attending Provider: Susnhine Braun VTE Deep Vein Thrombosis/Pulmonary Embolism Present on Admission: No
--- NOTE | 2019-03-20 08:43 | PM.DS.1 ---
History of Present Illness History of Present Illness Date Patient Seen: 03/20/19 Time Patient Seen: 08:43 Chief complaint: *[id number] Narrative: Patient underwent a anterior and posterior repair with sacrospinous ligament fixation with biologic graft. Discharge Providers Provider Discharge Date: 03/20/19 Primary care physician: Hira Mathew MD Discharge provider: Sunshine Braun MD Summary Hospital Course Discharge Diagnosis: Symptomatic uterovaginal prolapse, cystocele predominant Hospital Course: Patient underwent a anterior repair with biological graft and posterior repair with sacrospinous ligament fixation on 03/19/2019. Her packing and catheter removed on 03/20/2019 she will be discharged after which postvoid residual check. Patient does have some mild cramping that is mostly relieved with pain medicine. She has some left buttock discomfort but does not radiate down into her leg. Status at Discharge Cognitive/behavioral status at discharge: oriented Functional status at discharge: independent ambulation Overall status at discharge: patient is progressing back to baseline Time Spent with Patient Time spent: Less than 30 minutes Exam Vital Signs (past 8 hours): - 03/20/19 06:15 03/20/19 07:00 Temperature 98.2 F 98.4 F Pulse Rate 88 81 Respiratory Rate 18 16 Blood Pressure 135/65 138/70 Pulse Oximetry 98 97 Oxygen Delivery Method Room Air Oxygen Flow Rate 0 Narrative Exam Narrative: Patient's abdomen is soft, nontender. Vaginal packing was removed. Extremities without edema and nontender. Discharge Plan Discharge Plan Patient Disposition: Home Discharge comment: Remove the Scopolamine patch within 72 hours. Wash your hands after removal of patch. Discharge Med Rec/Prescriptions Prescriptions: New oxycodone-acetaminophen 5-325 mg tablet 1 tab PO Q4-6H PRN (Reason: pain) Qty: 30 RF: 0 Continued multivitamin Capsule 1 cap PO DAILY Qty: 0 RF: 0 levothyroxine 150 mcg tablet 150 mcg PO DAILY RF: 0 acetaminophen [Tylenol Extra Strength] 500 mg Tablet 1,000 mg PO BID RF: 0 Follow up/Referrals: Sunshine Braun MD [Physician] - (Patient will call to schedule postop appointment to coincide with [place]) Discharge Orders: Discharge (Order); Ordered 03/20/19 Ordered By: Sunshine Braun Provider Discharge Instructions Diet: Regular Activity: Nothing in vagina or lift over 20 lb for 6 weeks Skin/Wound/Dressing Care Report to your healthcare provider any signs of infection, such as:: chills, fever and increased pain Discharge Data Primary Care Provider: Hira Mathew Attending Provider: Sunshine Braun Quality VTE Deep Vein Thrombosis/Pulmonary Embolism Present on Admission: No
[2019-03-20] MEDS: DOCUSATE 250 MG CAPSULE PO (09:05)
[2019-03-20] MEDS: LEVOTHYROXINE 150 MCG TABLET PO (09:05)
[2019-03-20 11:00] VITALS: BP 138/61; PULSE 85; RESP 14; TEMP 37.1; O2SAT 99
--- NOTE | 2019-03-20 11:32 | PC.NURSE ---
Addendum entered by Maria R Castellon R.N. 03/20/19 14:45: Pt's present to drive pt home, has all belongings. PIV removed. Pt left unit at 1444 via wheelchair with FACULTY DEAN escort. Pt left unit in no distress. Addendum entered by Maria R Castellon R.N. 03/20/19 13:23: Discharge summary information packet given to pt around 1300. Discharge packet stated for pt to not lift anything over 20lbs, pt reported Dr told her nothing over 5 lbs. This va underwriter stated follow what Dr had told her (5 lb limit). pt will call Physician office to make follow up appointment for in 2 weeks. Pt states has all her belongings. Prescription for Percocet given to pt and will fill at [facility]. Also given priority boarding pass. Pt's will be coming around 1400 and pt will leave around 1500 to [place] [address] [employer] [place] [address]. Addendum entered by Maria R Castellon R.N. 03/20/19 12:16: At 1210, FACULTY DEAN reported that pt had voided another 150mls and PVR was 39. Original Note: Day Shift- Pt A&OX4, appropriate, able to make needs known using call light. Dr. Braun into see pt around 0805. removed vaginal packing and urinary catheter around 0729-3201. Pt voided at 1035 approx 100-115 mls. PVR was 76. Pt had small amount of red blood on adore-pad and with void. Pt said she had sneezed and felt sharp pain to pelvic area. Will monitor. Pt c/o left gluteal pain, Dr. Braun aware. Plan for discharge early this afternoon and take [address] [employer] [place]. Pt ambulating indep in room and halls X2 laps in unit at 2 different times.
--- NOTE | 2019-03-20 12:39 | CM.DANOTE ---
DCP/Assessment: Reviewed chart. Patient is 63yr old female admitted [facility] for surgical procedure performed by Dr. Braun on 03-19-19. PCP is Dr. Mathew. Primary payor 1)[facility]. Met with patient explained CM/SW role. Patient reports that she is discharging home today. Patient completely I in all ADL's and reports that she has very supportive spouse. Patient resides on [facility] and plans to take 3:45pm sailing. RN aware that priority boarding pass needs to be completed. No additional needs identified. P: Home today. MAGDALENO Judge Discharge Planning/Care Management CM Discharge Assessment Start: 03/20/19 12:36 Freq: Status: Active Protocol: Document 03/20/19 12:37 KJS (Rec: 03/20/19 12:38 KJS [id number]) Discharge Planning Assessment Assigned Die Hardener MAGDALENO Judge Contact Information Benedict Worley (spouse) # Advance Directives? Yes: Health Care Directive & Supplement; DPOA For Health Care Advance Directives on File Yes: Dated 07/31/13 History Provided By Patient,Medical Record Prior Living Arrangements House Household Members spouse Type of transporation used prior to Drives own vehicle admit Independent with ADL's Yes Is patient alert and oriented? Yes Barriers to Discharge No Discharge Plan Home Referrals Initiated None needed Whiteboard Updated in Patient Room with Yes name and ext. # of Die Hardener Review Status In Process Next Review Type Continued Stay Review Pre-Anesthesia Assessment Start: 03/15/19 15:03 Freq: Status: Complete Protocol: Document 03/15/19 15:03 CAB (Rec: 03/15/19 15:16 CAB [id number]) Pre-Anesthesia Assessment Patient Information Reviewed Via Chart Review Seen Specialist in Last 12 Months Yes Specialist Seen Telephoto Engineer Primary Language [place] Destination Sign Repairer Required No Height 157.48 cm Weight 92.986 kg Body Mass Index (BMI) 37.5 Hx Anesthesia Reactions Yes: PONV Anesthesia Review Requested No Insurance Agency Manager No Patient is completely paralyzed or No completely immobile Mental Status Oriented to own ability Hx Sleep Apnea No Currently Taking a Beta Sulema No Anti-Coagulant Therapy No Has a Returner No Cardiac Testing No Hx Pacemaker/ICD No Pacemaker Rep Required? No Cardiac Clearance Received Not Applicable Bladder Pattern Urgency Urinary Catheter Present No Hx Urinary Self Catheterization No Diabetes No Patient No Lactating No Hx Drug Resistant Organism Yes: MRSA x 2 in 2019 Marital Status Lives With spouse Patient Discharge Plan Description Return Home Advance Directives? Yes Advance Directives on File Yes: Dated 07/31/13 Power of Lunch Truck Operator Yes: On file, dated 07/31/13
== END 2019-03-20 14:44 | disposition home or self-care (01) ==
LOC: OR 14:07 → AC 17:28
PROVIDERS: Family Provider Family Medicine; PCP Family Medicine; Visit Provider Specialist
PROC: (CPT 57282; principal; 2019-03-19 13:30)
DX: N81.2 Incomplete uterovaginal prolapse (principal)
CPT/HCPCS: 57282; 57267; 57240; C1781; J0690; J1100; J1885; J2175; J2405; J2704; J3010

== ENCOUNTER → 2021-06-18 11:37 | Outpatient (CLI) | payer MEDICARE, SELFPAY ==
[2021-06-08 13:25] VITALS: BMI 36.3
[2021-06-18 19:17] LABS: Free T3, Triiodothyronine Free 3.76 pg/mL (2.77-5.27); Free T4, Direct Thyroxine 1.65 ng/dL (0.78-2.19)
[2021-06-18 19:32] LABS: Thyroid Stimulating Hormone < 0.015 uIU/mL (0.47-4.68)
== END ==
PROVIDERS: Family Provider Family Medicine; PCP Physician Assistant Medical; Referring Provider Physician Assistant; Visit Provider Physician Assistant
DX: E03.9 Hypothyroidism, unspecified (principal)
CPT/HCPCS: 84439; 84443; 84481

== ENCOUNTER → 2021-09-15 08:40 | Outpatient (CLI) | payer MEDICARE, SELFPAY ==
[2021-06-08 13:25] VITALS: BMI 36.3
--- NOTE | 2021-09-15 08:42 | DI.US.S_ITS ---
PROCEDURE: US PERIPH VENOUS LOW EXTREM BI INDICATIONS: LEFT CALF PAIN TECHNIQUE: Real-time imaging, as well as color and pulse Doppler interrogation, were performed of the deep veins of both legs from the inguinal ligament to the popliteal fossa. COMPARISON: None. FINDINGS: Right: The common femoral, femoral and popliteal veins are normally compressible, and free of intraluminal thrombus. Color and pulse Doppler demonstrate normal phasic intravascular flow. There is normal augmentation response to distal compression maneuver. Left: The common femoral, femoral and popliteal veins are normally compressible, and free of intraluminal thrombus. Color and pulse Doppler demonstrate normal phasic intravascular flow. There is normal augmentation response to distal compression maneuver. Additional, dedicated ultrasound scanning is performed at the area of left calf pain. No focal ultrasound abnormalities are seen within this region. IMPRESSION: Negative for deep venous thrombosis. Dictated by: Pranav Munson M.D. on 09/15/2021 at 8:28 Approved by: Pranav Munson M.D. on 09/15/2021 at 8:28
== END ==
PROVIDERS: Family Provider Family Medicine; PCP Physician Assistant Medical; Referring Provider Family Medicine; Visit Provider Family Medicine
DX: M79.662 Pain in left lower leg (principal)
CPT/HCPCS: 93970

== ENCOUNTER → 2021-12-10 11:08 | Outpatient (CLI) | payer MEDICARE, SELFPAY ==
[2021-06-08 13:25] VITALS: BMI 36.3
[2021-12-10 19:27] LABS: TSH w/ Reflex to FT4 < 0.02 uIU/mL (0.47-4.68)
[2021-12-10 19:58] LABS: Free T4, Direct Thyroxine 1.82 ng/dL (0.78-2.19)
== END ==
PROVIDERS: Family Provider Family Medicine; PCP Physician Assistant; Visit Provider Physician Assistant
DX: E03.9 Hypothyroidism, unspecified (principal)
CPT/HCPCS: 84439; 84443

== ENCOUNTER → 2022-01-19 10:00 | Outpatient (CLI) | payer MEDICARE, SELFPAY ==
[2021-06-08 13:25] VITALS: BMI 36.3
[2022-01-19 19:47] LABS: Hemoglobin A1C% w Est Avg Glu 5.3 % (4.0-6.0)
[2022-01-19 19:48] LABS: Alanine Aminotransferase 20 IU/L (<35); Albumin 3.8 g/dL (3.5-5.0); Albumin Globulin Ratio 1.4 (1.0-2.8); Alkaline Phosphatase 68 U/L (38-126); Aspartate Aminotransferase 22 IU/L (14-36); BUN Creatinine Ratio 24.2 (6-22); Bilirubin Total 0.4 mg/dL (0.2-1.3); Blood Urea Nitrogen 16 mg/dL (7-17); Calcium 9.2 mg/dL (8.4-10.2); Carbon Dioxide 27 mmol/L (22-32); Chloride 103 mmol/L (98-107); Estimated Glomerular Filt Rate > 60 mL/min (>60); Globulin 2.7 g/dL (1.7-4.1); Glucose 86 mg/dL (80-110); HEMOLYSIS < 15 (0-50); Sodium 140 mmol/L (137-145); Total Protein 6.5 g/dL (6.3-8.2)
[2022-01-19 19:55] LABS: Basophils Absolute Auto 0 /uL (0-100); Basophils Percent Auto 0.9 % (0-2); Eosinophils Absolute Auto 100 /uL (0-450); Eosinophils Percent Auto 2.3 % (2-4); Hemoglobin 12.2 g/dL (12.0-16.0); Lymphocytes Absolute Auto 1300 /uL (1100-4500); Lymphocytes Percent Auto 27.1 % (25-40); Mean Corpuscular HGB Conc 33.9 % (30-36); Mean Corpuscular Volume 85.5 fL (80-100); Monocytes Absolute Auto 500 /uL (0-900); Monocytes Percent Auto 9.8 % (3-14); Neutrophils Absolute Auto 2800 /uL (1500-7000); Neutrophils Percent Auto 59.9 % (50-75); Platelet Count 219 X10^3/uL (150-400); Red Blood Cell Count 4.21 X10^6/uL (4.0-5.2); Red Cell Distribution Width 13.9 % (11.6-14.8); White Blood Cell Count 4.7 X10^3/uL (4.5-11.0)
[2022-01-19 20:39] LABS: Add Manual Diff / Slide Review SLIDE REVIEW
[2022-01-19 20:40] LABS: RBC Morphology Normal Morphology
== END ==
PROVIDERS: Orthopaedic Surgery; Family Provider Family Medicine; PCP Physician Assistant; Visit Provider Physician Assistant
DX: Z01.818 Encounter for other preprocedural examination (principal); R73.9 Hyperglycemia, unspecified; Z01.812 Encounter for preprocedural laboratory examination
CPT/HCPCS: 80053; 83036; 85025

== ENCOUNTER → 2022-01-25 07:21 | Outpatient (CLI) | payer MEDICARE, SELFPAY ==
[2021-06-08 13:25] VITALS: BMI 36.3
[2022-01-25 20:40] LABS: COVID19 - ORCAS (NP or Nasal) Negative (Negative)
== END ==
PROVIDERS: Family Provider Family Medicine; PCP Physician Assistant; Visit Provider Physician Assistant
DX: Z20.822 Contact with and (suspected) exposure to COVID-19 (principal); Z01.812 Encounter for preprocedural laboratory examination
CPT/HCPCS: C9803; U0003

== ENCOUNTER → 2022-02-02 07:04 | Outpatient (CLI) | payer MEDICARE, SELFPAY ==
[2021-06-08 13:25] VITALS: BMI 36.3
[2022-02-02 21:15] LABS: COVID19 - ORCAS (NP or Nasal) Negative (Negative)
== END ==
PROVIDERS: Family Provider Family Medicine; PCP Physician Assistant; Visit Provider Physician Assistant
DX: Z01.812 Encounter for preprocedural laboratory examination (principal); Z20.822 Contact with and (suspected) exposure to COVID-19
CPT/HCPCS: C9803; U0003

== ENCOUNTER → 2022-03-22 09:16 | Outpatient (CLI) | payer MEDICARE, SELFPAY ==
[2021-06-08 13:25] VITALS: BMI 36.3
[2022-03-22 20:20] LABS: Thyroid Stimulating Hormone < 0.015 uIU/mL (0.47-4.68)
[2022-03-23 12:39] LABS: Free T4, Direct Thyroxine 1.72 ng/dL (0.78-2.19)
== END ==
PROVIDERS: Family Provider Family Medicine; PCP Physician Assistant; Visit Provider Physician Assistant
DX: E03.9 Hypothyroidism, unspecified (principal); R79.89 Other specified abnormal findings of blood chemistry
CPT/HCPCS: 84439; 84443

== ENCOUNTER → 2022-05-18 10:59 | Outpatient (CLI) | payer MEDICARE, SELFPAY ==
[2021-06-08 13:25] VITALS: BMI 36.3
[2022-05-19 00:09] LABS: Thyroid Stimulating Hormone 4.12 uIU/mL (0.47-4.68)
== END ==
PROVIDERS: Family Provider Family Medicine; PCP Physician Assistant; Visit Provider Physician Assistant
DX: E03.9 Hypothyroidism, unspecified (principal); R79.89 Other specified abnormal findings of blood chemistry
CPT/HCPCS: 84439; 84443

== ENCOUNTER → 2022-08-12 11:32 | Outpatient (CLI) | payer MEDICARE, SELFPAY ==
[2021-06-08 13:25] VITALS: BMI 36.3
[2022-08-12 20:33] LABS: Free T4, Direct Thyroxine 1.46 ng/dL (0.78-2.19)
[2022-08-12 20:47] LABS: Thyroid Stimulating Hormone 1.03 uIU/mL (0.47-4.68)
== END ==
PROVIDERS: Family Provider Family Medicine; PCP Physician Assistant; Visit Provider Physician Assistant
DX: E03.9 Hypothyroidism, unspecified (principal)
CPT/HCPCS: 84439; 84443

== ENCOUNTER → 2022-09-30 10:02 | Outpatient (CLI) | payer MEDICARE, SELFPAY ==
[2021-06-08 13:25] VITALS: BMI 36.3
[2022-09-30 22:16] LABS: Adenovirus F 40/41 Not Detected (Not Detect); Astrovirus Not Detected (Not Detect); Campylobacter Not Detected (Not Detect); Clostridium difficile toxin AB Not Detected (Not Detect); Cryptosporidium Not Detected (Not Detect); Cyclospora cayetanensis Not Detected (Not Detect); Entamoeba histolytica Not Detected (Not Detect); Enteroaggregative E.coli Not Detected (Not Detect); Enteropathogenic E.coli Not Detected (Not Detect); Enterotoxigenic E.coli It/st Not Detected (Not Detect); Giardia lamblia Not Detected (Not Detect); Norovirus GI/GII Not Detected (Not Detect); Plesiomonsa shigelloides Not Detected (Not Detect); Rotavirus A Not Detected (Not Detect); Salmonella Not Detected (Not Detect); Sapovirus Not Detected (Not Detect); Shiga-like toxin-prod E.coli Not Detected (Not Detect); Shigella/Enteroinvasive E.coli Not Detected (Not Detect); Vibrio Not Detected (Not Detect); Vibrio cholerae Not Detected (Not Detect); Yersinia enterocolitica Not Detected (Not Detect)
== END ==
PROVIDERS: Family Provider Family Medicine; PCP Physician Assistant; Visit Provider Physician Assistant Medical
DX: R13.10 Dysphagia, unspecified (principal); R19.7 Diarrhea, unspecified
CPT/HCPCS: 87045; 87177; 87507; 87899

== ENCOUNTER → 2022-10-07 12:58 | Outpatient (CLI) | payer MEDICARE, SELFPAY ==
[2021-06-08 13:25] VITALS: BMI 36.3
[2022-10-07 20:04] LABS: Add Manual Diff / Slide Review NO; Basophils Absolute Auto 0 /uL (0-100); Basophils Percent Auto 0.9 % (0-2); Eosinophils Absolute Auto 100 /uL (0-450); Eosinophils Percent Auto 1.1 % (2-4); Hematocrit 37.6 % (36-46); Hemoglobin 12.6 g/dL (12.0-16.0); Lymphocytes Absolute Auto 1400 /uL (1100-4500); Lymphocytes Percent Auto 27.2 % (25-40); Mean Corpuscular HGB Conc 33.6 % (30-36); Mean Corpuscular Hemoglobin 29.4 PG (26-34); Mean Corpuscular Volume 87.4 fL (80-100); Monocytes Absolute Auto 400 /uL (0-900); Monocytes Percent Auto 7.9 % (3-14); Neutrophils Absolute Auto 3100 /uL (1500-7000); Neutrophils Percent Auto 62.9 % (50-75); Platelet Count 227 X10^3/uL (150-400); Red Blood Cell Count 4.31 X10^6/uL (4.0-5.2); Red Cell Distribution Width 14.1 % (11.6-14.8)
[2022-10-07 20:34] LABS: Alanine Aminotransferase 22 IU/L (<35); Albumin Globulin Ratio 1.7 (1.0-2.8); Alkaline Phosphatase 72 U/L (38-126); Aspartate Aminotransferase 25 IU/L (14-36); BUN Creatinine Ratio 17.1 (6-22); Bilirubin Total 0.2 mg/dL (0.2-1.3); Blood Urea Nitrogen 13 mg/dL (7-17); Calcium 8.9 mg/dL (8.4-10.2); Carbon Dioxide 27 mmol/L (22-32); Chloride 103 mmol/L (98-107); Estimated Glomerular Filt Rate > 60 mL/min (>60); Globulin 2.4 g/dL (1.7-4.1); Glucose 81 mg/dL (80-110); HEMOLYSIS < 15 (0-50); Potassium 4.2 mmol/L (3.4-5.1); Sodium 138 mmol/L (137-145); Total Protein 6.4 g/dL (6.3-8.2)
[2022-10-07 20:52] LABS: TSH w/ Reflex to FT4 3.02 uIU/mL (0.47-4.68)
== END ==
PROVIDERS: Family Provider Family Medicine; PCP Physician Assistant; Visit Provider Physician Assistant Medical
DX: R13.10 Dysphagia, unspecified (principal); R19.7 Diarrhea, unspecified; K21.9 Gastro-esophageal reflux disease without esophagitis
CPT/HCPCS: 80053; 84443; 85025

== ENCOUNTER → 2023-09-27 09:59 | Outpatient (CLI) | payer MEDICARE, SELFPAY ==
[2021-06-08 13:25] VITALS: BMI 36.3
[2023-09-27 19:10] LABS: Add Manual Diff / Slide Review NO; Basophils Absolute Auto 0 /uL (0-100); Basophils Percent Auto 0.7 % (0-2); Eosinophils Absolute Auto 100 /uL (0-450); Eosinophils Percent Auto 1.7 % (2-4); Hematocrit 38.9 % (36-46); Lymphocytes Absolute Auto 1400 /uL (1100-4500); Lymphocytes Percent Auto 28.1 % (25-40); Mean Corpuscular HGB Conc 33.4 % (30-36); Mean Corpuscular Hemoglobin 29.1 PG (26-34); Mean Corpuscular Volume 87.2 fL (80-100); Monocytes Absolute Auto 400 /uL (0-900); Monocytes Percent Auto 7.3 % (3-14); Neutrophils Absolute Auto 3000 /uL (1500-7000); Neutrophils Percent Auto 62.2 % (50-75); Platelet Count 236 X10^3/uL (150-400); Red Blood Cell Count 4.46 X10^6/uL (4.0-5.2); Red Cell Distribution Width 13.7 % (11.6-14.8); White Blood Cell Count 4.8 X10^3/uL (4.5-11.0)
[2023-09-27 19:15] LABS: Alanine Aminotransferase 17 IU/L (<35); Albumin 4.2 g/dL (3.5-5.0); Albumin Globulin Ratio 1.8 (1.0-2.8); Alkaline Phosphatase 74 U/L (38-126); Aspartate Aminotransferase 23 IU/L (14-36); BUN Creatinine Ratio 15.9 (6-22); Bilirubin Total 0.6 mg/dL (0.2-1.3); Blood Urea Nitrogen 11 mg/dL (7-17); Calcium 9.2 mg/dL (8.4-10.2); Carbon Dioxide 31 mmol/L (22-32); Chloride 105 mmol/L (98-107); Cholesterol 217 mg/dL (140-199); Estimated Glomerular Filt Rate > 60 mL/min (>60); Globulin 2.4 g/dL (1.7-4.1); Glucose 86 mg/dL (80-110); HDL Cholesterol 58 mg/dL (40-60); HEMOLYSIS < 15 (0-50); LDL Cholesterol Calculated 121 mg/dL (<100); Sodium 138 mmol/L (137-145); Total Protein 6.6 g/dL (6.3-8.2); Triglycerides 189 mg/dL (35-150)
[2023-09-27 19:49] LABS: TSH w/ Reflex to FT4 4.72 uIU/mL (0.47-4.68)
[2023-09-27 21:23] LABS: Free T4, Direct Thyroxine 1.32 ng/dL (0.78-2.19)
== END ==
PROVIDERS: Family Provider Family Medicine; PCP Physician Assistant; Visit Provider Physician Assistant
DX: Z13.6 Encounter for screening for cardiovascular disorders (principal); E03.9 Hypothyroidism, unspecified; Z79.899 Other long term (current) drug therapy
CPT/HCPCS: 80053; 80061; 84439; 84443; 85025

== ENCOUNTER → 2024-03-14 07:45 | Outpatient (CLI) | payer MEDICARE, SELFPAY ==
[2021-06-08 13:25] VITALS: BMI 36.3
== END ==
PROVIDERS: Family Provider Family Medicine; PCP Physician Assistant; Referring Provider Physician Assistant; Visit Provider Physician Assistant
DX: Z12.11 Encounter for screening for malignant neoplasm of colon (principal)
CPT/HCPCS: 82274

== ENCOUNTER → 2024-04-20 10:28 | Outpatient (CLI) | payer MEDICARE, SELFPAY ==
[2021-06-08 13:25] VITALS: BMI 36.3
[2024-04-20 17:07] LABS: Alanine Aminotransferase 17 IU/L (<35); Albumin 3.9 g/dL (3.5-5.0); Albumin Globulin Ratio 1.3 (1.0-2.8); Alkaline Phosphatase 72 U/L (38-126); Aspartate Aminotransferase 28 IU/L (14-36); BUN Creatinine Ratio 17.4 (6-22); Bilirubin Total 0.4 mg/dL (0.2-1.3); Blood Urea Nitrogen 12 mg/dL (7-17); Calcium 9.2 mg/dL (8.4-10.2); Carbon Dioxide 29 mmol/L (22-32); Chloride 105 mmol/L (98-107); Cholesterol 218 mg/dL (140-199); Estimated Glomerular Filt Rate > 60 mL/min (>60); Glucose 86 mg/dL (80-110); HDL Cholesterol 58 mg/dL (40-60); HEMOLYSIS < 15 (0-50); LDL Cholesterol Calculated 131 mg/dL (<100); Potassium 4.1 mmol/L (3.4-5.1); Sodium 137 mmol/L (137-145); Total Protein 6.9 g/dL (6.3-8.2); Triglycerides 145 mg/dL (35-150)
[2024-04-20 17:41] LABS: Thyroid Stimulating Hormone 0.021 uIU/mL (0.47-4.68)
[2024-04-23 15:05] LABS: Hep C Virus Ab w/Reflex Quant NEGATIVE s/c (NEGATIVE)
== END ==
PROVIDERS: Family Provider Family Medicine; PCP Physician Assistant; Visit Provider Physician Assistant
DX: Z11.59 Encounter for screening for other viral diseases (principal); E03.9 Hypothyroidism, unspecified; E78.5 Hyperlipidemia, unspecified; Z79.899 Other long term (current) drug therapy
CPT/HCPCS: 80053; 80061; 84443; 86803

== ENCOUNTER → 2024-08-16 08:30 | Outpatient (CLI) | payer MEDICARE, OTHER, SELFPAY ==
[2021-06-08 13:25] VITALS: BMI 36.3
== END ==
PROVIDERS: Family Provider Family Medicine; PCP Physician Assistant; Visit Provider Physician Assistant
DX: R19.7 Diarrhea, unspecified (principal); R10.9 Unspecified abdominal pain
CPT/HCPCS: 87045

== ENCOUNTER → 2024-10-15 13:06 | Outpatient (CLI) | payer MEDICARE, OTHER, SELFPAY ==
[2021-06-08 13:25] VITALS: BMI 36.3
[2024-10-15 19:58] LABS: TSH w/ Reflex to FT4 < 0.02 uIU/mL (0.47-4.68)
[2024-10-15 21:00] LABS: Free T4, Direct Thyroxine 1.67 ng/dL (0.78-2.19)
== END ==
LOC: LAB 13:06
PROVIDERS: Family Provider Family Medicine; PCP Physician Assistant; Visit Provider Physician Assistant
DX: E03.9 Hypothyroidism, unspecified (principal)
CPT/HCPCS: 84439; 84443

== ENCOUNTER → 2024-12-25 11:08 | Outpatient (CLI) | payer MEDICARE, OTHER, SELFPAY ==
[2021-06-08 13:25] VITALS: BMI 36.3
[2024-12-25 19:48] LABS: Add Manual Diff / Slide Review NO; Hematocrit 38.8 % (36-46); Hemoglobin 12.8 g/dL (12.0-16.0); Lymphocytes Absolute Auto 1300 /uL (1100-4500); Mean Corpuscular HGB Conc 33.1 % (30-36); Mean Corpuscular Hemoglobin 29.0 PG (26-34); Mean Corpuscular Volume 87.5 fL (80-100); Platelet Count 219 X10^3/uL (150-400)
[2024-12-25 19:51] LABS: Cholesterol 209 mg/dL (140-199); HDL Cholesterol 57 mg/dL (40-60); Triglycerides 116 mg/dL (35-150)
[2024-12-25 20:21] LABS: Free T3, Triiodothyronine Free 3.48 pg/mL (2.77-5.27)
[2024-12-25 20:35] LABS: TSH w/ Reflex to FT4 0.41 uIU/mL (0.47-4.68)
[2024-12-25 21:02] LABS: Free T4, Direct Thyroxine 1.91 ng/dL (0.78-2.19)
== END ==
PROVIDERS: Family Provider Family Medicine; PCP Physician Assistant; Visit Provider Physician Assistant
DX: E03.9 Hypothyroidism, unspecified (principal); Z13.6 Encounter for screening for cardiovascular disorders; R79.89 Other specified abnormal findings of blood chemistry; E78.2 Mixed hyperlipidemia
CPT/HCPCS: 80061; 84439; 84443; 84481; 85025

== ENCOUNTER → 2025-03-26 13:05 | Outpatient (CLI) | payer MEDICARE, OTHER, SELFPAY ==
[2021-06-08 13:25] VITALS: BMI 36.3
[2025-03-26 18:55] LABS: Add Manual Diff / Slide Review NO; Hematocrit 38.8 % (36-46); Hemoglobin 13.1 g/dL (12.0-16.0); Lymphocytes Absolute Auto 1400 /uL (1100-4500); Mean Corpuscular HGB Conc 33.7 % (30-36); Mean Corpuscular Hemoglobin 29.6 PG (26-34); Mean Corpuscular Volume 87.7 fL (80-100); Platelet Count 237 X10^3/uL (150-400)
[2025-03-26 19:34] LABS: TSH w/ Reflex to FT4 0.58 uIU/mL (0.47-4.68)
== END ==
PROVIDERS: Family Provider Family Medicine; PCP Physician Assistant; Visit Provider Physician Assistant
DX: E03.9 Hypothyroidism, unspecified (principal); R79.89 Other specified abnormal findings of blood chemistry
CPT/HCPCS: 84443; 85025